=== PATIENT | male | born 1970 | race Caucasian/White ===

== ENCOUNTER 2017-04-10 12:01 | Emergency (ER) | payer MEDICARE, OTHER ==
[~2017-04-10] VITALS: Ht 180.3 cm; Wt 89.5 kg
[~2017-04-10 12:01] MED LIST: AMLO10TA2 PO; ANAS1TAB PO; CANNIBUS PO; CARB100T3 PO; DIAZ5TAB4 PO; DICL100G8 TP; DICY10CA3 PO; OMEP-110 PO; POTA20TA89 PO; RASA1TAB PO; TESTOSTERONE IM; TRAM50TA2 PO; VALS320T2 PO; [UNRECOGNIZED DRUG - OTHER] IM
[2017-04-10 12:04] VITALS: BP 158/100
[2017-04-10] MEDS ORDERED: LORazepam 2 MG/ML, 1ML ONE ×2 (12:38→13:38)
[2017-04-10] MEDS ORDERED: ONDANSETRON ODT 4 MG ONE (12:49)
[2017-04-10] MEDS ORDERED: ONDANSETRON ODT 8 MG PO PRN (13:00)
[2017-04-10] MEDS: LORazepam 2 MG/ML, 1ML IM PRN ×2 (13:06→13:45)
[2017-04-10] MEDS ORDERED: DIAZEPAM 5 MG TABLET PO ONE (13:30)
[2017-04-10] MEDS ORDERED: LORazepam 2 MG/ML, 1ML IM ONE (14:00)
== END 2017-04-10 14:02 | disposition home or self-care (01) ==
LOC: ED 14:02
DX: M96.89 Other intraoperative and postprocedural complications and disorders of the musculoskeletal system (principal)
CPT/HCPCS: 36415; 73030; 85025; 85651; 96372; 99285; J2060; Q0162

== ENCOUNTER 2017-12-20 01:51 | Emergency (ER) | payer MEDICARE, OTHER ==
[~2017-12-20] VITALS: Ht 180.3 cm; Wt 91.5 kg
[~2017-12-20 01:51] MED LIST changes: +DICL100G19 TP; -DICL100G8 TP; -RASA1TAB PO; +RASA1TAB2 PO
[2017-12-20] MEDS ORDERED: KETOROLAC 30 MG/1 ML ONE (02:06)
[2017-12-20] MEDS ORDERED: FENTANYL PF 100 MCG/2ML ONE (02:06)
[2017-12-20] MEDS ORDERED: ONDANSETRON 2MG/ML, 2ML ONE (02:08)
[2017-12-20 02:25] LABS: MICROSCOPIC AUTO
[2017-12-20 02:27] LABS: CULTURE INDICATED? NO
[2017-12-20] MEDS ORDERED: SODIUM CHLORIDE FLUSH 10ML SYR IVF ONE (02:30)
[2017-12-20] MEDS ORDERED: KETOROLAC 30 MG/1 ML IVPush ONE (02:30)
[2017-12-20] MEDS ORDERED: ONDANSETRON 2MG/ML, 2ML IVPush ONE (02:30)
[2017-12-20] MEDS ORDERED: FENTANYL PF 100 MCG/2ML IVPush PRN (02:30)
[2017-12-20] MEDS ORDERED: SODIUM CHLORIDE 0.9% 1,000ML IVBOLUS ONE (02:30)
[2017-12-20 02:51] LABS: ALANINE AMINOTRANSFERASE 114 U/L (12-78); ALBUMIN 4.2 g/dL (3.4-5.0); ANION GAP 7 mmol/L (5-15); CALCIUM 8.7 mg/dL (8.5-10.1); CHLORIDE 110 mmol/L (98-107); CREATININE 1.25 mg/dL (0.7-1.3)
[2017-12-20 02:53] LABS: BASOPHILS # (AUTO) 0.06 x10^3/uL (0-0.1); BASOPHILS % (AUTO) 1 % (0-1); EOSINOPHILS # (AUTO) 0.19 x10^3/uL (0-0.4); EOSINOPHILS % (AUTO) 2 % (1-7); LYMPHOCYTES % (AUTO) 44 % (22-44); MD NO; MEAN CORPUSCULAR HEMOGLOBIN 30.7 pg (27.5-34.5); MEAN CORPUSCULAR HGB CONC 33.8 g/dL (33.2-36.2); MEAN CORPUSCULAR VOLUME 91.1 fL (81-97); MEAN PLATELET VOLUME 7.7 fL (7.4-10.4); MONOCYTES # (AUTO) 0.83 x10^3/uL (0.2-0.8); MONOCYTES % (AUTO) 10 % (2-9); NEUTROPHILS # (AUTO) 3.85 x10^3/uL (1.8-6.8); NEUTROPHILS % (AUTO) 44 % (42-75); PLATELET COUNT 364 x10^3/uL (130-400); RED CELL DISTRIBUTION WIDTH 13.7 % (9.4-14.8)
[2017-12-20 02:54] LABS: ALKALINE PHOSPHATASE 76 U/L (45-117); BILIRUBIN,TOTAL 0.4 mg/dL (0.2-1.0); TOTAL PROTEIN 7.6 g/dL (6.4-8.2)
[2017-12-20 03:28] VITALS: BP 136/100
[2017-12-20] MEDS ORDERED: MORPHINE SULFATE 4 MG/ML, 1ML ONE (03:35)
[2017-12-20] MEDS ORDERED: MORPHINE SULFATE 4 MG/ML, 1ML IVPush ONE (04:00)
== END 2017-12-20 04:07 | disposition home or self-care (01) ==
LOC: ED 02:08
DX: N13.2 Hydronephrosis with renal and ureteral calculous obstruction (principal); F43.10 Post-traumatic stress disorder, unspecified
CPT/HCPCS: 36415; 74176; 80053; 81001; 83690; 85025; 96361; 96374; 96375; 99285; J1885; J2405; J3010; J7030

== ENCOUNTER 2018-10-29 13:12 | Emergency (ER) | payer MEDICARE, OTHER ==
[~2018-10-29] VITALS: Ht 182.9 cm; Wt 93.8 kg
[~2018-10-29 13:12] MED LIST changes: -AMLO10TA2 PO; +AMLO10TA6 PO; +ASPI-515 PO; +ATOR20TA37 PO; +CARV6.2512 PO; +FURO40TA6 PO; +OMEP20TA62 PO; +ONDA4TAB13 SL
[2018-10-29] MEDS ORDERED: HYDROcodone/APAP 5/325 TABLET PO ONE (14:30)
[2018-10-29] MEDS ORDERED: ONDANSETRON ODT 4 MG PO ONE (14:30)
[2018-10-29] MEDS ORDERED: ONDANSETRON ODT 4 MG ONE (15:03)
[2018-10-29] MEDS ORDERED: HYDROcodone/APAP 5/325 TABLET ONE (15:04)
[2018-10-29 15:57] VITALS: BP 122/61
== END 2018-10-29 15:59 | disposition home or self-care (01) ==
LOC: ED 14:49
DX: S16.1XXA Strain of muscle, fascia and tendon at neck level, initial encounter (principal); S09.90XA Unspecified injury of head, initial encounter; I50.9 Heart failure, unspecified; I11.0 Hypertensive heart disease with heart failure; W01.0XXA Fall on same level from slipping, tripping and stumbling without subsequent striking against object, initial encounter; Y93.89 Activity, other specified; Y92.89 Other specified places as the place of occurrence of the external cause; Y99.8 Other external cause status
CPT/HCPCS: 70450; 72072; 72125; 99284; Q0162

== ENCOUNTER 2018-11-11 16:50 | Emergency (ER) | payer MEDICARE, OTHER ==
[~2018-11-11] VITALS: Ht 182.9 cm; Wt 90.0 kg
[2018-11-11] MEDS ORDERED: POTA20TA14 PO (18:15)
[2018-11-11] MEDS ORDERED: DICY10CA3 PO (18:15)
[2018-11-11] MEDS ORDERED: OMEP-110 PO (18:15)
[2018-11-11] MEDS ORDERED: SACU1TAB4 PO (18:15)
[2018-11-11] MEDS ORDERED: DRON10CA PO (18:15)
[2018-11-11] MEDS ORDERED: LOPE2TAB28 PO (18:15)
[2018-11-11] MEDS ORDERED: [UNRECOGNIZED DRUG - OTHER] INJ (18:15)
[2018-11-11] MEDS ORDERED: RASA1TAB2 PO (18:15)
[2018-11-11] MEDS ORDERED: CARB100T3 PO (18:15)
[2018-11-11] MEDS ORDERED: RANI150T4 PO (18:15)
[2018-11-11 18:16] LABS: BASOPHILS # (AUTO) 0.07 x10^3/uL (0-0.1); BASOPHILS % (AUTO) 1 % (0-1); EOSINOPHILS # (AUTO) 0.14 x10^3/uL (0-0.4); EOSINOPHILS % (AUTO) 2 % (1-7); LYMPHOCYTES # (AUTO) 2.54 x10^3/uL (1-3.4); LYMPHOCYTES % (AUTO) 34 % (22-44); MD NO; MEAN CORPUSCULAR HGB CONC 33.5 g/dL (33.2-36.2); MEAN CORPUSCULAR VOLUME 89.4 fL (81-97); MEAN PLATELET VOLUME 7.9 fL (7.4-10.4); MONOCYTES # (AUTO) 0.81 x10^3/uL (0.2-0.8); MONOCYTES % (AUTO) 11 % (2-9); NEUTROPHILS # (AUTO) 4.01 x10^3/uL (1.8-6.8); NEUTROPHILS % (AUTO) 53 % (42-75); PLATELET COUNT 342 x10^3/uL (130-400); RED BLOOD COUNT 6.27 x10^6/uL (4.38-5.82); RED CELL DISTRIBUTION WIDTH 14.2 % (9.4-14.8)
[2018-11-11 18:25] LABS: ALANINE AMINOTRANSFERASE 39 U/L (12-78); ALBUMIN 4.4 g/dL (3.4-5.0); ANION GAP 8 mmol/L (5-15); CALCIUM 9.2 mg/dL (8.5-10.1); CHLORIDE 110 mmol/L (98-107); CREATININE 1.47 mg/dL (0.7-1.3)
[2018-11-11 18:29] LABS: ALKALINE PHOSPHATASE 73 U/L (45-117); BILIRUBIN,TOTAL 0.5 mg/dL (0.2-1.0); TOTAL PROTEIN 7.9 g/dL (6.4-8.2); TROPONIN I < 0.015 ng/mL (0.000-0.045)
[2018-11-11 19:55] VITALS: BP 145/106
== END 2018-11-11 19:56 | disposition home or self-care (01) ==
LOC: ED 19:29
DX: I11.0 Hypertensive heart disease with heart failure (principal); I50.9 Heart failure, unspecified; N28.9 Disorder of kidney and ureter, unspecified; F43.10 Post-traumatic stress disorder, unspecified
CPT/HCPCS: 36415; 71045; 80053; 83880; 84484; 85025; 93005; 99284

== ENCOUNTER 2019-10-30 23:21 | Emergency (ER) | payer MEDICARE, OTHER ==
[~2019-10-30] VITALS: Ht 182.9 cm; Wt 95.0 kg
[~2019-10-30 23:21] MED LIST changes: -AMLO10TA6 PO; +AMLO10TA8 PO; +DRON10CA PO; +LOPE2TAB28 PO; +POTA20TA14 PO; +RANI150T4 PO; +SACU1TAB4 PO; +[UNRECOGNIZED DRUG - OTHER] INJ
[2019-10-30 23:25] VITALS: BP 156/106
[2019-10-31] MEDS ORDERED: HYDROcodone/APAP 5/325 TABLET ONE (00:52)
[2019-10-31] MEDS ORDERED: HYDROcodone/APAP 5/325 TABLET PO ONE (01:00)
== END 2019-10-31 01:16 | disposition home or self-care (01) ==
LOC: ED 10-31 01:01
DX: S83.91XA Sprain of unspecified site of right knee, initial encounter (principal); I10 Essential (primary) hypertension; X50.1XXA Overexertion from prolonged static or awkward postures, initial encounter; Y93.89 Activity, other specified; Y92.410 Unspecified street and highway as the place of occurrence of the external cause; Y99.8 Other external cause status
CPT/HCPCS: 29505; 99283